=== PATIENT | male | born 1990 | race American Indian/Alaskan Native ===

== ENCOUNTER 2019-05-17 09:04 | Emergency (ER) | payer SELFPAY ==
[2019-05-17 09:09] VITALS: BP 143/90
--- NOTE | 2019-05-17 09:14 | Emergency Department Report ---
Stated Complaint: SORE THROAT AND EARACHE Time Seen by Provider: 05/17/19 09:05 - HPI History of Present Illness: 28 y/o male comes in for sore throat and earache times 4 days. No fever no nausea or vomiting. Has been taking OTC medications. - Exam Physical Exam: Axo times 3 NAD Mouth moist erythmatous throat MSE screening note: Focused history and physical exam performed. Due to findings the following was ordered: Patient has a patent airway vital signs stable. Follow up with urgent care or [facility] ED Disposition for MSE Condition: Stable
== END 2019-05-17 09:51 | disposition home or self-care (01) ==
LOC: ED 09:04
DX: J02.9 Acute pharyngitis, unspecified (principal); Z53.21 Procedure and treatment not carried out due to patient leaving prior to being seen by health care provider